=== PATIENT | male | born 1945 | race Caucasian/White ===

== ENCOUNTER 2017-02-13 10:47 | Day surgery (SDC) | payer MEDICARE, BC ==
[2017-02-12 12:29] VITALS: BMI 25.0
[~2017-02-13 10:47] MED LIST: LACTATED RINGERS 1,000 ML IV SCH
[2017-02-13 11:27] VITALS: TEMP 98.3
[2017-02-13] MEDS ORDERED: LIDOCAINE 1% 20 ML VIAL (10MG/ML) FOR IV START INTRADERMA ONE (11:38)
[2017-02-13] MEDS ORDERED: PROPOFOL 10 MG/ML 20 ML VIAL IV ONE (11:50)
--- NOTE | 2017-02-13 11:57 | P.PCN ---
Date of Procedure: 02/13/17 Procedure(s) Performed: BRIEF HISTORY: Patient is a 71-year-old, pleasant, male, scheduled for an upper endoscopy as a part of surveillance of Trent's esophagus. He has long standing history of GERD.. PROCEDURE PERFORMED: Esophagogastroduodenoscopy with biopsy. PREOPERATIVE DIAGNOSIS: GERD/Trent's esophagus. IV sedation per anesthesia. PROCEDURE: After informed consent was obtained, the patient was brought into the endoscopy unit. IV sedation was administered by Anesthesia under continuous monitoring. Initially the Olympus GIF-140 video endoscope was inserted into the mouth. Esophagus intubated without any difficulty. It was gradually advanced into the stomach and duodenum and carefully examined. The bulb and the second part of the duodenum appeared normal. The scope at this time was withdrawn to the stomach, adequately insufflated with air, and upon careful examination, mucosa of the antrum, body, cardia and the fundus appeared normal. The scope was then withdrawn into the esophagus. Moderate size hiatal hernia noted. The GE junction was located at 35 cm from the incisors. There was long segment Trent's esophagus extending from 32-35 cm from incisors and biopsies were done from this area. The rest of the esophagus appeared normal. There were no erosions or ulcerations seen and the patient tolerated the procedure well. IMPRESSION: 1. Trent's esophagus. 2. Small to moderate size hiatal hernia. RECOMMENDATIONS: The findings of this examination were discussed with the patient as well as his family. He was advised to follow with the biopsy results. If the biopsy shows no evidence of dysplasia, he can have a repeat upper endoscopy in 2-3 years.
[2017-02-13 12:19] VITALS: BP 132/79; PULSE 52; RESP 18
== END 2017-02-13 12:39 | disposition home or self-care (01) ==
LOC: ORWHC2ENDO 10:47
PROVIDERS: ATTEND Internal Medicine Gastroenterology
DX: K22.70 Barrett's esophagus without dysplasia (principal); K21.9 Gastro-esophageal reflux disease without esophagitis; K44.9 Diaphragmatic hernia without obstruction or gangrene; I10 Essential (primary) hypertension; E78.5 Hyperlipidemia, unspecified; I25.10 Atherosclerotic heart disease of native coronary artery without angina pectoris; Z95.5 Presence of coronary angioplasty implant and graft; Z79.899 Other long term (current) drug therapy; Z79.82 Long term (current) use of aspirin
CPT/HCPCS: 88305; 43239; J2704

== ENCOUNTER 2019-03-20 08:01 | Day surgery (SDC) | payer MEDICARE, BC ==
[2019-03-18 13:03] VITALS: BMI 25.0
[~2019-03-20 08:01] MED LIST changes: +LIDOCAINE 1% 20 ML VIAL (10MG/ML) FOR IV START INTRADERMA PRN
[2019-03-20 08:24] VITALS: RESP 16; TEMP 97.6
[2019-03-20] MEDS ORDERED: PROPOFOL 10 MG/ML 20 ML VIAL IV ONE (08:57)
[2019-03-20] MEDS ORDERED: LIDOCAINE 1% INJ 10MG/ML (20 ML MDV) ONE (08:57)
--- NOTE | 2019-03-20 09:09 | P.PCN ---
Date of Procedure: 03/20/19 Procedure(s) Performed: BRIEF HISTORY: Patient is a 73-year-old, pleasant, white male, scheduled for an upper endoscopy as a part of evaluation of GERD and Trent's esophagus.. He remains on Prilosec 20 mg daily and doing well. PROCEDURE PERFORMED: Esophagogastroduodenoscopy with biopsy. PREOPERATIVE DIAGNOSIS: GERD/Trent's esophagus. IV sedation per anesthesia. PROCEDURE: After informed consent was obtained, the patient was brought into the endoscopy unit. IV sedation was administered by Anesthesia under continuous monitoring. Initially the Olympus GIF-140 video endoscope was inserted into the mouth. Esophagus intubated without any difficulty. It was gradually advanced into the stomach and duodenum and carefully examined. The bulb and the second part of the duodenum appeared normal. The scope at this time was withdrawn to the stomach, adequately insufflated with air, and upon careful examination, mucosa of the antrum, body, cardia and the fundus appeared normal. The scope was then withdrawn into the esophagus. Moderate size hiatal hernia noted. The GE junction was located at 38 cm from the incisors. There was long segment of Trent's esophagus extending from 34-38 cm from the incisors and multiple biopsies were done from this segment. No nodularity or ulcerations noted. The rest of the esophagus appeared normal. There were no erosions or ulcerations seen and the patient tolerated the procedure well. IMPRESSION: 1. Long segment Trent's esophagus status post multiple biopsies to rule out dysplasia. 2. Small to moderate size hiatal hernia. RECOMMENDATIONS: The findings of this examination were discussed with the patient as well as his family. He was advised to follow with the biopsy results. If the biopsy shows no evidence of dysplasia, he can have a repeat upper endoscopy in 2 years.
[2019-03-20 09:55] VITALS: BP 166/88; PULSE 58
== END 2019-03-20 09:52 | disposition home or self-care (01) ==
LOC: ORWHC2ENDO 08:01
PROVIDERS: ATTEND Internal Medicine Gastroenterology
DX: K22.70 Barrett's esophagus without dysplasia (principal); K21.9 Gastro-esophageal reflux disease without esophagitis; K44.9 Diaphragmatic hernia without obstruction or gangrene; I10 Essential (primary) hypertension; I25.10 Atherosclerotic heart disease of native coronary artery without angina pectoris; I25.2 Old myocardial infarction; E78.5 Hyperlipidemia, unspecified; M19.90 Unspecified osteoarthritis, unspecified site; Z79.82 Long term (current) use of aspirin; Z79.899 Other long term (current) drug therapy; Z95.5 Presence of coronary angioplasty implant and graft
CPT/HCPCS: 88305; 43239; J2001; J2704

== ENCOUNTER 2019-04-06 16:43 | Inpatient (IN) | payer MEDICARE, BC ==
--- NOTE | 2019-04-06 16:51 | ED ---
Fall HPI - General Stated Complaint: fall/hip & groin pain Time Seen by Provider: 04/06/19 16:43 Source: patient, EMS, RN notes reviewed - History of Present Illness Initial Comments: This is a 73-year-old male who states he fell yesterday getting out of his truck after going to the [employer] birthday green party and having some drinks. Gastric exactly how he fell he had no head neck or back pain but did complain of severe right hip pain. He was. He allows by his family he still remains nonweightbearing complains of 10/10 pain did did improve somewhat after IV pain medication given by paramedics. No loss of function to his lower extremity chest pain. He points to his buttock and anterior hip area. He has no prior history of falls or fractures to his lower extremities. MD Complaint: fall - Related Data Home Medications Medication Instructions Recorded Confirmed Aspirin 81 mg PO DAILY 11/13/13 04/06/19 Carvedilol [Coreg] 6.25 mg PO BID 11/13/13 04/06/19 Omeprazole [PriLOSEC] 20 mg PO AC-BRKFST 11/13/13 04/06/19 Rosuvastatin Calcium [Crestor] 20 mg PO DAILY 11/13/13 04/06/19 Allergies Allergy/AdvReac Type Severity Reaction Status Date / Time No Known Allergies Allergy Verified 04/06/19 17:10 Review of Systems ROS Statement: Those systems with pertinent positive or pertinent negative responses have been documented in the HPI. ROS Other: All systems not noted in ROS Statement are negative. Past Medical History Past Medical History: Hyperlipidemia, Hypertension, Myocardial Infarction ([place]), Osteoarthritis ([place]) Additional Past Medical History / Comment(s): Trent's Esophagus Last Myocardial Infarction Date:: 2005 History of Any Multi-Drug Resistant Organisms: None Reported Past Surgical History: Heart Catheterization With Stent, Orthopedic Surgery Additional Past Surgical History / Comment(s): Knee arthro.;. benign cyst removed from chest. EGD, Past Anesthesia/Blood Transfusion Reactions: Motion Sickness Date of Last Stent Placement:: 2005 Smoking Status: Current every day smoker - Past Family History Mother Family Medical History: Cancer General Exam - General Exam Comments Initial Comments: This is a well-developed well-nourished alert oriented times female demonstrate a [place] Coma Scale of 15 General appearance: alert, in no apparent distress Head exam: Present: atraumatic, normocephalic, normal inspection Eye exam: Present: normal appearance, PERRL, EOMI. Absent: scleral icterus, conjunctival injection, periorbital swelling ENT exam: Present: normal exam, mucous membranes moist Neck exam: Present: normal inspection, full ROM, other (No Stridor JVD or bruits). Absent: tenderness, meningismus, lymphadenopathy Respiratory exam: Present: normal lung sounds bilaterally. Absent: respiratory distress, wheezes, rales, rhonchi, stridor Cardiovascular Exam: Present: regular rate, normal rhythm, normal heart sounds. Absent: systolic murmur, diastolic murmur, rubs, gallop, clicks GI/Abdominal exam: Present: soft, normal bowel sounds. Absent: distended, tenderness, guarding, rebound, rigid Extremities exam: Present: normal inspection, tenderness (Tennis palpation of the right buttock and anterior pelvis no definite hip tenderness no definite shortening or rotation seen.), normal capillary refill. Absent: pedal edema, joint swelling, calf tenderness Back exam: Present: normal inspection Neurological exam: Present: alert, oriented X3, CN II-XII intact Psychiatric exam: Present: normal affect, normal mood Skin exam: Present: warm, dry, intact, normal color. Absent: rash Course Vital Signs 04/06/19 16:46 Temperature 98 F Respiratory 20 Rate Medical Decision Making - Medical Decision Making I did discuss findings with patient family members patient will be admitted for evaluation and repair the fracture I did discuss case with Dr. Galindo who is agreed to set the patient to his service. - Radiology Data Radiology results: report reviewed (I did review the imaging and reports patient does have a subcapital right hip fracture.), image reviewed Disposition Clinical Impression: Fall, Subcapital fracture of right hip Disposition: ADMITTED IP TO THIS [facility] Condition: Fair Referrals: [facility],Clinic [Primary Care Provider] - 1-2 days
--- NOTE | 2019-04-06 17:19 | XR ---
EXAMINATION TYPE: XR Hip Complete RT DATE OF EXAM: 04/06/2019 COMPARISON: NONE HISTORY: Fall. Pain. TECHNIQUE: 2 views FINDINGS: There is impacted subcapital fracture of the right femur. Impaction is more than 2 cm. Ther e is no dislocation. Acetabulum is intact. Right sacroiliac joint appears intact. IMPRESSION: Acute impacted subcapital fracture right femur.
--- NOTE | 2019-04-06 17:20 | XR ---
EXAMINATION TYPE: XR chest 1V DATE OF EXAM: 04/06/2019 COMPARISON: NONE HISTORY: Right hip pain TECHNIQUE: Single frontal view of the chest is obtained. FINDINGS: There is no heart failure nor confluent pneumonic infiltrate. Costophrenic angles are maria ines r. Bony thorax appears intact. IMPRESSION: No active cardiopulmonary disease.
[2019-04-06] MEDS ORDERED: HYDROmorphone 1 MG/ML 1 ML SYRINGE IVP STA (17:40)
[2019-04-06] MEDS ORDERED: ONDANSETRON 4 MG/2 ML VIAL IVP PRN (18:17)
[2019-04-06] MEDS ORDERED: NALOXONE 0.4 MG/ML 1 ML VIAL IV PRN (18:17)
[2019-04-06 18:24] LABS: Basophils % (A) 0 %; Eosinophils # (A) 0.1 k/uL (0-0.7); Eosinophils % (A) 1 %; HCT 42.3 % (39.0-53.0); HGB 14.9 gm/dL (13.0-17.5); Lymphocytes % (A) 10 %; MCH 33.1 pg (25.0-35.0); MCHC 35.2 g/dL (31.0-37.0); MCV 94.1 fL (80.0-100.0); Mean Platelet Volume 5.9; Monocytes # (A) 0.6 k/uL (0-1.0); Monocytes % (A) 6 %; Neutrophils # (A) 8.2 k/uL (1.3-7.7); Neutrophils % (A) 83 %; Platelet Count 186 k/uL (150-450); RDW 12.3 % (11.5-15.5); WBC 9.9 k/uL (3.8-10.6)
[2019-04-06 18:33] LABS: ALT 44 U/L (21-72); AST 34 U/L (17-59); African American GFR (CKD) >90 (>60 ml/min/1.73 sqM); Albumin 4.3 g/dL (3.5-5.0); Alkaline Phosphatase 86 U/L (38-126); Anion Gap 9 mmol/L; Blood Urea Nitrogen 12 mg/dL (9-20); Calcium 9.1 mg/dL (8.4-10.2); Carbon Dioxide 25 mmol/L (22-30); Chloride 103 mmol/L (98-107); Creatine Kinase 343 U/L (55-170); Glucose 116 mg/dL (74-99); Magnesium 1.9 mg/dL (1.6-2.3); Potassium 4.3 mmol/L (3.5-5.1); Sodium 137 mmol/L (137-145); Total Bilirubin 1.4 mg/dL (0.2-1.3); Total Protein 7.4 g/dL (6.3-8.2)
[2019-04-06] MEDS: SODIUM CHLORIDE 0.9% 1,000 ML IV SCH (19:31)
[2019-04-06 20:03] LABS: Appearance,Urine Clear (Clear); Bacteria,Urine Rare /hpf; Bilirubin,Urine Negative (Negative); Blood,Urine Small (Negative); Color,Urine Yellow; Glucose,Urine (UA) Negative (Negative); Ketones,Urine 2+ (Negative); Leukocyte Esterase,Urine Negative (Negative); Mucus,Urine Rare /hpf; Nitrite,Urine Negative (Negative); Protein,Urine Trace (Negative); RBC,Urine 1 /hpf (0-5); Specific Gravity,Urine 1.012 (1.001-1.035); Urobilinogen,Urine <2.0 mg/dL (<2.0); WBC,Urine 1 /hpf (0-5)
[2019-04-06] MEDS: HYDROmorphone 1 MG/ML 1 ML SYRINGE IVP PRN ×2 (20:40→23:42)
[2019-04-06] MEDS: HEPARIN SODIUM,PORCINE 5,000 UNIT/ML 1 ML VIAL SQ SCH (23:46)
[2019-04-07] MEDS: HYDROmorphone 1 MG/ML 1 ML SYRINGE IVP PRN ×3 (02:26→08:34)
[2019-04-07] MEDS: SODIUM CHLORIDE 0.9% 1,000 ML IV SCH ×3 (02:27→16:33)
[2019-04-07] MEDS: HEPARIN SODIUM,PORCINE 5,000 UNIT/ML 1 ML VIAL SQ SCH (08:32)
--- NOTE | 2019-04-07 08:35 | P.HPOR ---
History of Present Illness H&P Date: 04/07/19 This patient is a 73-year-old male with past medical history of myocardial infarction status-post stent placement in 2005, hypertension, hyperlipidemia that presented to [facility] ER via EMS history on 04/06/19 with complaints of right hip pain status post fall. Patient states earlier in the day he had attended a [place] birthday [employer], and was drinking alcohol. The patient states he was intoxicated when he fell. He states he was outside when he fell, he is unsure of it was icy or how he fell. He states he landed directly onto the right hip. He states he experienced immediate pain and was unable to get up on his own. The patient's and daughter helped him into the house, and EMS was called. X-rays in the emergency department revealed a right subcapital femoral neck fracture. Patient was admitted under the care of Dr. Galindo with a consult placed to internal medicine for medical clearance. At the time of my exam, the patient is complaining of isolated right hip pain. He states he did not sustain any additional injuries. He denies chest pain, shortness breath, nausea, vomiting. Despite his pain, he states he otherwise feels well. Vital signs stable. Past Medical History Past Medical History: Hyperlipidemia, Hypertension, Myocardial Infarction ([place]), Osteoarthritis ([place]) Additional Past Medical History / Comment(s): Trent's Esophagus, [place] 2005 Last Myocardial Infarction Date:: 2005 History of Any Multi-Drug Resistant Organisms: None Reported Past Surgical History: Heart Catheterization With Stent, Hernia Repair, Orthopedic Surgery Additional Past Surgical History / Comment(s): Knee arthro 1970.;. benign cyst removed from chest. EGD on Mar 22, 2019 Past Anesthesia/Blood Transfusion Reactions: Motion Sickness Date of Last Stent Placement:: 2005 Past Psychological History: No Psychological Hx Reported Smoking Status: Current every day smoker Past Alcohol Use History: Occasional Additional Past Alcohol Use History / Comment(s): Start smoking at the age of 13. Past Drug Use History: None Reported - Past Family History Mother Family Medical History: Cancer Medications and Allergies Home Medications Medication Instructions Recorded Confirmed Type Aspirin 81 mg PO DAILY 11/13/13 04/06/19 History Carvedilol [Coreg] 6.25 mg PO BID 11/13/13 04/06/19 History Omeprazole [PriLOSEC] 20 mg PO AC-BRKFST 11/13/13 04/06/19 History Rosuvastatin Calcium [Crestor] 20 mg PO DAILY 11/13/13 04/06/19 History Clobetasol Propionate [Temovate 1 applic TOPICAL BID PRN 04/06/19 04/06/19 History 0.05% Cream] Ezetimibe [Zetia] 10 mg PO SUWE 04/06/19 04/06/19 History Loratadine [Claritin] 10 mg PO DAILY PRN 04/06/19 04/06/19 History Meloxicam [Mobic] 7.5 mg PO DAILY PRN 04/06/19 04/06/19 History Allergies Allergy/AdvReac Type Severity Reaction Status Date / Time No Known Allergies Allergy Verified 04/06/19 17:10 Physical Examination On examination, the patient is sitting up in bed in no apparent distress. He is alert and oriented 3. His head is atraumatic and normocephalic. His breathing appears nonlabored. On inspection of the right lower extremity, extremity is shortened and externally rotated. There is diffuse tenderness on palpation of the right hip. There is no tenderness to palpation of the right knee, lower leg, ankle, foot. Patient has full range of motion of the ankle and toes, no pain to passive range of motion. The right lower extremity is warm and well-perfused. Dorsalis pedis pulse palpable. Motor and sensory function are intact of the right lower extremity. On inspection of the left lower extremity, and the bilateral upper extremities, there is no obvious deformity or evidence of trauma. Results Right hip x-ray 04/06/19: Acute subcapital femoral neck fracture - Labs Labs: Abnormal Lab Results - Last 24 Hours (Table) 04/06/19 04/06/19 04/06/19 Range/Units 17:29 18:00 18:00 Neutrophils # 8.2 H (1.3-7.7) k/uL Glucose 116 H (74-99) mg/dL Total Bilirubin 1.4 H (0.2-1.3) mg/dL Creatine Kinase 343 H (55-170) U/L Urine Protein Trace H (Negative) Urine Ketones 2+ H (Negative) Urine Blood Small H (Negative) Urine Bacteria Rare H (None) /hpf Urine Mucus Rare H (None) /hpf H & H 04/06/19 Range/Units 18:00 Hgb 14.9 (13.0-17.5) gm/dL Hct 42.3 (39.0-53.0) % Result Diagrams: 04/06/19 18:00 04/06/19 18:00 Assessment and Plan Assessment: Right subcapital femoral neck fracture Plan: - Discussed the clinical and x-ray findings with the patient. We will plan on a right hip hemiarthroplasty this afternoon with Dr. Galindo, pending medical clearance and consent. - Strict non-weight bearing of the right lower extremity. Ice and elevate right hip for pain and swelling control. - Continue current pain management. - NPO diet. - Patient discussed with Dr. Galindo.
[2019-04-07] MEDS ORDERED: DIAZEPAM 5 MG TAB PO PRN (10:48)
[2019-04-07] MEDS ORDERED: MAGNESIUM HYDROXIDE 2,400 MG/10 ML CUP PO PRN (10:48)
[2019-04-07] MEDS ORDERED: ONDANSETRON 4 MG/2 ML VIAL IVP PRN (10:48)
[2019-04-07] MEDS ORDERED: HYDROmorphone 0.5 MG/0.5 ML SYRINGE IVP PRN ×2 (10:48)
[2019-04-07] MEDS ORDERED: NALOXONE 0.4 MG/ML 1 ML VIAL IV PRN (10:48)
[2019-04-07] MEDS ORDERED: HYDROcodone/APAP 5-325MG 1 EACH TAB PO PRN (10:48)
[2019-04-07] MEDS ORDERED: LACTATED RINGERS 1,000 ML IV ONE ×2 (11:06→13:31)
[2019-04-07] MEDS ORDERED: IV FLUID CONTINUATION 50 ML IV ONE (11:06)
--- NOTE | 2019-04-07 11:16 | P.PN ---
Progress Note - Text Progress Note Date: 04/07/19 Patient was seen and evaluated at the bedside today. I discussed the case with Dr. Galindo, who due to time constraints would be unable to perform the surgery until much later this afternoon. The best interest of the patient, I agreed to perform the procedure sooner in the day, in order to accelerate the patient's recovery. I discussed the surgery at length with the patient examined him and evaluate the x-rays. I recommended a right hip hemiarthroplasty for subcapital fracture of his hip. He is agreeable to this informed consent was obtained.
[2019-04-07] MEDS ORDERED: fentaNYL (PF) 50 MCG/ML 2 ML AMP IV ONE (11:38)
[2019-04-07] MEDS ORDERED: KETAMINE 10 MG/ML 20 ML VIAL ONE (12:12)
[2019-04-07] MEDS ORDERED: PHENYLEPHRINE-0.9% NACL SYG 1 MG/10 ML SYRINGE ONE (12:12)
[2019-04-07] MEDS ORDERED: MIDAZOLAM 2 MG/2 ML VIAL ONE (12:12)
[2019-04-07] MEDS ORDERED: SODIUM CHLORIDE 0.9% 100 ML with ceFAZolin 2,000 MG IV ONE ×2 (12:30)
--- NOTE | 2019-04-07 13:19 | P.OP ---
Date of Procedure: 04/07/19 Preoperative Diagnosis: Subcapital fracture right hip Postoperative Diagnosis: Subcapital fracture right hip Procedure(s) Performed: Right hip hemiarthroplasty Implants: Kaba and nephew Polarstem size 6 standard Kaba [employer] Nephew tandem unipolar, 52 mm Kaba [employer] Nephew tandem unipolar 12/14 taper sleeve, +8 mm All components were press-fit. Anesthesia: spinal Surgeon: Alberto Quiros Manufacturing Director #1: Sandy Oliver Estimated Blood Loss (ml): 100 Pathology: other (Femoral head) Condition: stable Disposition: PACU Indications for Procedure: This is a 73-year-old gentleman that slipped and fell and sustained a subcapital fracture of his right hip. After discussing the surgical nonsurgical treatment options with him at length, I recommended a right hip hemiarthroplasty, and informed consent was obtained. Operative Findings: The operative findings are consistent with a subcapital fracture of the right hip Description of Procedure: Patient was seen and evaluated in the preoperative area, consent was reviewed and the operative site was marked with a skin marker. Patient was then brought to the operating room and given 2 g of Ancef intravenously. A spinal anesthetic was administered by the anesthesia department. Patient was then placed in a lateral decubitus position and held with a [place] hip positioner. The bony prominences were well-padded and an axillary roll was placed. The hip was then prepped and draped in the usual sterile fashion. A universal timeout was then performed which confirmed the patient's name, surgical site, ALLERGIES, and pr ocedure. A standard anterolateral approach the hip was performed. Skin and subcutaneous tissues were sharply incised with an incision centered over the tip of the greater trochanter. The incision was carefully dissected down to the fascia. The fascia was then split in line with skin incision and a Charnley retractor was gently placed. The abductors were then identified, and the anterior one t hird of the abductors were released off the trochanter and one large sleeve. The fracture hematoma was evacuated and the proximal femur was exposed by externally rotating the femur. The fracture site was readily visualized. Next, using an osteotomy guide, the proximal femur was osteotomized at the appropriate level of the above the lesser trochanter. This bone was then removed. Attention was then turned to the femoral head. Using a corkscrew, the femoral head was removed from the acetabulum without incident. The acetabulum was inspected, and found to have no significant arthrosis. Femoral head was then measured. Attention was then redirected to the femur. Proximal femur was re-exposed and a box osteotome was used to lateralize the proximal femur. A burr bench hand was then used to locate the femoral canal. Sequential broaching was then performed to the appropriate size. The calcar was then planed and trial head and neck were placed. The hip was then gently reduced. Leg lengths were checked and found to be equal. Hip was then taken through a full range of motion was stable throughout. The hip was then gently dislocated with the aid of a bone hook. The trial head and neck were then removed. The femoral broach was then inspected and found to have a secure fit. The broach was then removed. The hip was then copiously irrigated with antibiotic solution with a pulse lavage. Components were then opened and the femoral stem was then impacted into the proximal femur. The trunnion was cleaned and dried, and the femoral head and neck were then impacted. Hip was again gently reduced. Again leg lengths were checked and found to be equal, and the hip was taken through a full range of motion and found to be stable. The hip was again irrigated with pulsatile lavag e, then followed by the Irrrisept solution. The abductors were then repaired through drill holes to the bone to the greater trochanter, utilizing #5 Ethibond suture. Next the fascia was repaired with #2 strata fix suture. The subcutaneous tissue was then repaired with 3-0 Vicryl. The subcuticular tissue was then repaired with 3-0 strata fix suture. Skin was then closed with Dermabond tape. A sterile dressing was then applied and the patient was transported to the recovery room in stable condition. Manufacturing Director EMMA Alvarez was required due to the complexity of surgery the need for skilled dental assistant medical assistant. She assisted with positioning the patient, draping the patient, retraction during the surgery, and closure of the wound.
--- NOTE | 2019-04-07 14:14 | XR ---
Limited right hip HISTORY: Status post right hip arthroplasty Single frontal view of the right hip Patient is status post right hip arthroplasty. There is anatomic alignment. Lucency in the soft tissu es is compatible with postop state. IMPRESSION: Orthopedic follow-up.
[2019-04-07] MEDS ORDERED: CLOBETASOL PROP 0.05% CR 15GM TOPICAL PRN (14:21)
--- NOTE | 2019-04-07 14:33 | P.CONS ---
History of Present Illness - Reason for Consult Preoperative clearance - History of Present Illness Patient is a pleasant 73-year-old gentleman had a mechanical fall. Will femoral neck fracture. Patient was intoxicated and fell. Patient has history of coronary artery disease no active chest pain at this time EKG showed some nonspecific ST-T wave changes, patient will benefit from an echocardiogram S si nce patient is going for surgery as soon as possible I believe patient is okay for surgery although patient is mild to moderate operative risk considering his smoking history. Patient can be continued on aspirin ration in any fevers his shortness of breath patient is not in CHF exacerbation at this time. Review of Systems REVIEW OF SYSTEMS: CONSTITUTIONAL: No fever, no malaise, no fatigue. HEENT: No recent visual problems or hearing problems. Denied any sore throat. CARDIOVASCULAR: No chest pain, orthopnea, PND, no palpitations, no syncope. PULMONARY: No shortness of breath, no cough, no hemoptysis. GASTROINTESTINAL: No diarrhea, no nausea, no vomiting, no abdominal pain. NEUROLOGICAL: No headaches, no weakness, no numbness. HEMATOLOGICAL: Denies any bleeding or petechiae. GENITOURINARY: Denies any burning micturition, frequency, or urgency. MUSCULOSKELETAL/RHEUMATOLOGICAL: As mentioned in HPI with the pain in the fracture site area ENDOCRINE: Denies any polyuria or polydipsia. The rest of the 14-point review of systems is negative. Past Medical History Past Medical History: Hyperlipidemia, Hypertension, Myocardial Infarction ([place]), Osteoarthritis ([place]) Additional Past Medical History / Comment(s): Rtent's Esophagus, [place] 2005 Last Myocardial Infarction Date:: 2005 History of Any Multi-Drug Resistant Organisms: None Reported Past Surgical History: Heart Catheterization With Stent, Hernia Repair, Orthopedic Surgery Additional Past Surgical History / Comment(s): Knee arthro 1970.;. benign cyst removed from chest. EGD on Mar 22, 2019 Past Anesthesia/Blood Transfusion Reactions: Motion Sickness Date of Last Stent Placement:: 2005 Past Psychological History: No Psychological Hx Reported Smoking Status: Current every day smoker Past Alcohol Use History: Occasional Additional Past Alcohol Use History / Comment(s): Start smoking at the age of 13. Past Drug Use History: None Reported - Past Family History Mother Family Medical History: Cancer Medications and Allergies Home Medications Medication Instructions Recorded Confirmed Type Aspirin 81 mg PO DAILY 11/13/13 04/06/19 History Carvedilol [Coreg] 6.25 mg PO BID 11/13/13 04/06/19 History Omeprazole [PriLOSEC] 20 mg PO AC-BRKFST 11/13/13 04/06/19 History Rosuvastatin Calcium [Crestor] 20 mg PO DAILY 11/13/13 04/06/19 History Clobetasol Propionate [Temovate 1 applic TOPICAL BID PRN 04/06/19 04/06/19 History 0.05% Cream] Ezetimibe [Zetia] 10 mg PO SUWE 04/06/19 04/06/19 History Loratadine [Claritin] 10 mg PO DAILY PRN 04/06/19 04/06/19 History Meloxicam [Mobic] 7.5 mg PO DAILY PRN 04/06/19 04/06/19 History Allergies Allergy/AdvReac Type Severity Reaction Status Date / Time No Known Allergies Allergy Verified 04/07/19 10:50 Physical Exam Vitals: Vital Signs Temp Pulse Pulse Resp BP BP Pulse Ox 04/07/19 14:16 87 16 139/67 96 04/07/19 14:00 79 16 141/66 97 04/07/19 13:47 99.4 F 92 20 110/58 92 L 04/07/19 10:40 98.8 F 96 16 123/85 94 L 04/07/19 07:00 98.4 F 90 16 149/80 92 L 04/07/19 03:15 78 18 04/07/19 01:50 98.1 F 87 147/82 93 L 04/07/19 00:35 78 18 04/06/19 22:02 78 162/78 04/06/19 21:00 18 04/06/19 20:40 97.9 F 80 176/90 96 04/06/19 19:33 164/85 04/06/19 19:11 98.1 F 84 18 159/94 96 04/06/19 19:03 85 18 171/107 93 L 04/06/19 19:00 171/107 95 04/06/19 18:00 191/93 04/06/19 17:40 191/93 04/06/19 16:46 98 F 20 Intake and Output 04/06/19 04/07/19 04/07/19 22:59 06:59 14:59 Intake Total 1000 1200 Output Total 300 310 Balance 1000 -300 890 Intake: IV 1200 Intake, IV Titration 750 Amount Sodium Chloride 0.9% 1, 750 000 ml @ 125 mls/hr IV . Q8H [facility] Rx#:[id number] Oral 250 Output: Urine 300 210 Estimated Blood Loss 100 Other: Voiding Method Urinal Urinal Urinal # Voids 1 1 Weight 86.183 kg PHYSICAL EXAMINATION: GENERAL: The patient is alert and oriented x3, not in any acute distress. Well developed, well nourished. HEENT: Pupils are round and equally reacting to light. EOMI. No scleral icterus. No conjunctival pallor. Normocephalic, atraumatic. No pharyngeal erythema. No thyromegaly. CARDIOVASCULAR: S1 and S2 present. No murmurs, rubs, or gallops. PULMONARY: Chest is clear to auscultation, no wheezing or crackles. ABDOMEN: Soft, nontender, nondistended, normoactive bowel sounds. No palpable organomegaly. MUSCULOSKELETAL: Deferred to orthopedic surgery EXTREMITIES: No cyanosis, clubbing, or pedal edema. NEUROLOGICAL: Gross neurological examination did not reveal any focal deficits. SKIN: No rashes. Results CBC & Chem 7: 04/06/19 18:00 04/06/19 18:00 Labs: Abnormal Lab Results - Last 24 Hours (Table) 04/06/19 04/06/19 04/06/19 Range/Units 17:29 18:00 18:00 Neutrophils # 8.2 H (1.3-7.7) k/uL Glucose 116 H (74-99) mg/dL Total Bilirubin 1.4 H (0.2-1.3) mg/dL Creatine Kinase 343 H (55-170) U/L Urine Protein Trace H (Negative) Urine Ketones 2+ H (Negative) Urine Blood Small H (Negative) Urine Bacteria Rare H (None) /hpf Urine Mucus Rare H (None) /hpf Assessment and Plan Plan: Mechanical fall and suffered a fracture of the right hip patient is low to intermediate risk for orthopedic surgery considering his distractors of coronary artery disease although doesn't have any chest pain and smoking history. Patient to functional status is fairly good. -Hyperlipidemia -Hypertension -Osteoarthritis -Coronary artery disease with stent in the past. -Continue nicotine use. Recommend to resume aspirin, beta terry and statin after surgery
[2019-04-07] MEDS: HYDROcodone/APAP 5-325MG 1 EACH TAB PO PRN (17:28)
[2019-04-07] MEDS: HYDROmorphone 0.5 MG/0.5 ML SYRINGE IVP PRN ×2 (19:30→23:22)
[2019-04-08] MEDS: SENNOSIDES-DOCUSATE SODIUM 1 EACH TAB PO SCH ×2 (00:40→20:35)
[2019-04-08] MEDS: SODIUM CHLORIDE 0.9% 1,000 ML IV SCH ×4 (02:48→10:54)
[2019-04-08] MEDS: HYDROcodone/APAP 5-325MG 1 EACH TAB PO PRN ×2 (02:53→10:56)
[2019-04-08] MEDS: HYDROmorphone 0.5 MG/0.5 ML SYRINGE IVP PRN ×4 (05:26→23:38)
[2019-04-08 07:22] LABS: Basophils % (A) 0 %; Eosinophils # (A) 0.1 k/uL (0-0.7); Eosinophils % (A) 1 %; HCT 37.4 % (39.0-53.0); HGB 12.7 gm/dL (13.0-17.5); Lymphocytes # (A) 1.1 k/uL (1.0-4.8); Lymphocytes % (A) 13 %; MCH 31.7 pg (25.0-35.0); MCHC 33.8 g/dL (31.0-37.0); MCV 93.9 fL (80.0-100.0); Mean Platelet Volume 6.5; Monocytes # (A) 0.5 k/uL (0-1.0); Monocytes % (A) 6 %; Neutrophils # (A) 6.8 k/uL (1.3-7.7); Neutrophils % (A) 79 %; Platelet Count 134 k/uL (150-450); RBC 3.99 m/uL (4.30-5.90); RDW 12.1 % (11.5-15.5); WBC 8.6 k/uL (3.8-10.6)
--- NOTE | 2019-04-08 08:22 | P.PN ---
Subjective Progress Note Date: 04/08/19 This is a 73-year-old male who is status post right hip hemiarthroplasty. This is postoperative day #1 and patient is seen and evaluated at bedside with Dr. Alberto Quiros. Patient states that he does have some soreness in the right hip, but overall is feeling well. Patient denies any fever/chills, numbness, weakness, tingling, abdominal pain, shortness of breath or chest pain. Objective - Vital Signs Vital signs: Vital Signs Temp 98.6 F 04/08/19 01:29 Pulse 85 04/08/19 01:29 Resp 20 04/08/19 01:29 BP 155/70 04/08/19 01:29 Pulse Ox 95 04/08/19 01:29 Intake & Output 04/07/19 04/08/19 04/08/19 18:59 06:59 18:59 Intake Total 1500 200 Output Total 310 1100 Balance 1190 -900 Intake: IV 1500 Oral 200 Output: Urine 210 1100 Estimated Blood Loss 100 Other: Voiding Method Urinal Urinal # Voids 1 2 - Exam Vital signs are stable. Patient is in no acute distress and is alert and oriented 3. Calf is soft and nontender to palpation. Dressing is clean, dry, and intact. Patient has full foot and ankle motion without pain or difficulty. Neurovascular status and circulatory status are intact. - Labs CBC & Chem 7: 04/08/19 06:57 04/06/19 18:00 Labs: Abnormal Lab Results - Last 24 Hours (Table) 04/08/19 Range/Units 06:57 RBC 3.99 L (4.30-5.90) m/uL Hgb 12.7 L (13.0-17.5) gm/dL Hct 37.4 L (39.0-53.0) % Plt Count 134 L (150-450) k/uL Assessment and Plan (1) S/P hip hemiarthroplasty Current Visit: Yes Status: Acute Code(s): Z96.649 - PRESENCE OF UNSPECIFIED ARTIFICIAL HIP JOINT SNOMED Code(s): 085464454 (2) Fall Current Visit: Yes Status: Acute Code(s): W19.XXXA - UNSPECIFIED FALL, INITIAL ENCOUNTER SNOMED Code(s): 5958599 (3) Subcapital fracture of right hip Current Visit: Yes Status: Acute Code(s): S72.011A - UNSP INTRACAPSULAR FRACTURE OF RIGHT FEMUR, INIT FOR CLOS FX SNOMED Code(s): 167079777 Plan: Continue routine postop care and pain control. Continue hip dislocation precautions and use of abductor pillow for 6 weeks. Continue anticoagulation with Xarelto. Weightbearing as tolerated with a walker. Leave dressing in place for 10 days. Appreciate input from medicine. Anticipate discharge home with homecare tomorrow.
[2019-04-08] MEDS: RIVAROXABAN 10 MG TAB PO SCH (08:45)
[2019-04-08] MEDS ORDERED: EZETIMIBE 10 MG TAB PO SCH (09:00)
--- NOTE | 2019-04-08 13:19 | P.PN ---
Subjective She did move his bowel patient pain is not controlled yet. Patient was bradycardic overnight patient is on beta terry patient is not hypertensive blood pressures also low patient does have history of coronary artery disease because of which patient is beta terry but it's not beneficial when his blood pressure is low and heart rate is low because of which is this can you this medication in spite of his history of coronary artery disease. 6 will monitor his blood pressure and heart rate depending on the trend, will decide on discharge beta terry. Constitutional: Denied any fatigue denied any fever. Cardio vascular: denied any chest pain, palpitations Gastrointestinal denied any nausea vomiting Pulmonary: Denied any shortness of breath cough Neurologic denied any new focal deficits All inpatient medications were reviewed and appropriate changes in these medications as dictated in the interval history and assessment and plan. Objective - Vital Signs Vital signs: Vital Signs Temp 99.0 F 04/08/19 07:31 Pulse 85 04/08/19 01:29 Resp 16 04/08/19 07:31 BP 118/56 04/08/19 07:31 Pulse Ox 92 L 04/08/19 07:31 Intake & Output 04/07/19 04/08/19 04/08/19 18:59 06:59 18:59 Intake Total 1500 200 Output Total 310 1100 Balance 1190 -900 Intake: IV 1500 Oral 200 Output: Urine 210 1100 Estimated Blood Loss 100 Other: Voiding Method Urinal Urinal # Voids 1 2 - Exam PHYSICAL EXAMINATION: GENERAL: The patient is alert and oriented x3, not in any acute distress. Well developed, well nourished. HEENT: Pupils are round and equally reacting to light. EOMI. No scleral icterus. No conjunctival pallor. Normocephalic, atraumatic. No pharyngeal erythema. No thyromegaly. CARDIOVASCULAR: S1 and S2 present. No murmurs, rubs, or gallops. PULMONARY: Chest is clear to auscultation, no wheezing or crackles. ABDOMEN: Soft, nontender, nondistended, normoactive bowel sounds. No palpable organomegaly. MUSCULOSKELETAL: Deferred to orthopedic surgery EXTREMITIES: No cyanosis, clubbing, or pedal edema. NEUROLOGICAL: Gross neurological examination did not reveal any focal deficits. SKIN: No rashes. - Labs CBC & Chem 7: 04/08/19 06:57 04/06/19 18:00 Labs: Abnormal Lab Results - Last 24 Hours (Table) 04/08/19 Range/Units 06:57 RBC 3.99 L (4.30-5.90) m/uL Hgb 12.7 L (13.0-17.5) gm/dL Hct 37.4 L (39.0-53.0) % Plt Count 134 L (150-450) k/uL Assessment and Plan Plan: Mechanical fall and suffered a fracture of the right hip she successfully underwent surgery. Patient is clinically doing well at this time patient has some sinus bradycardia from beta terry which will be held. Aspirin and statin will be resumed -Hyperlipidemia -Hypertension -Osteoarthritis -Coronary artery disease with stent in the past. -Continue nicotine use.
[2019-04-08] MEDS ORDERED: METOPROLOL TARTRATE 25 MG TAB PO SCH (21:00)
[2019-04-09] MEDS: ATORVASTATIN 40 MG TAB PO SCH (07:58)
[2019-04-09] MEDS: ASPIRIN 81 MG PO SCH (07:58)
[2019-04-09] MEDS: RIVAROXABAN 10 MG TAB PO SCH (07:59)
[2019-04-09] MEDS ORDERED: HYDROcodone/APAP 7.5-325MG 1 EACH TAB PO PRN (08:12)
--- NOTE | 2019-04-09 08:14 | P.PN ---
Subjective Progress Note Date: 04/09/19 This is a 73-year-old male who is status post right hip hemiarthroplasty. This is postoperative day #2 and patient is seen and evaluated at bedside. Patient states that he does have some pain in the right hip, but was able to get out of bed and walk a little bit yesterday. Patient denies any fever/chills, numbness, weakness, tingling, abdominal pain, shortness of breath or chest pain. Objective - Vital Signs Vital signs: Vital Signs Temp 98.3 F 04/09/19 07:20 Pulse 89 04/09/19 07:20 Resp 18 04/09/19 07:20 BP 133/75 04/09/19 07:20 Pulse Ox 91 L 04/09/19 07:20 Intake & Output 04/08/19 04/09/19 04/09/19 18:59 06:59 18:59 Intake Total 145 Output Total 1200 Balance -1055 Intake: Oral 145 Output: Urine 1200 Other: Voiding Method Urinal # Voids 2 300 - Exam Vital signs are stable. Patient is in no acute distress and is alert and oriented 3. Calf is soft and nontender to palpation. Dressing is clean, dry, and intact. Patient has full foot and ankle motion without pain or difficulty. Neurovascular status and circulatory status are intact. - Labs CBC & Chem 7: 04/08/19 06:57 04/06/19 18:00 Assessment and Plan (1) S/P hip hemiarthroplasty Current Visit: Yes Status: Acute Code(s): Z96.649 - PRESENCE OF UNSPECIFIED ARTIFICIAL HIP JOINT SNOMED Code(s): 555564121 (2) Fall Current Visit: Yes Status: Acute Code(s): W19.XXXA - UNSPECIFIED FALL, INITIAL ENCOUNTER SNOMED Code(s): 6474917 (3) Subcapital fracture of right hip Current Visit: Yes Status: Acute Code(s): S72.011A - UNSP INTRACAPSULAR FRACTURE OF RIGHT FEMUR, INIT FOR CLOS FX SNOMED Code(s): 942483653 Plan: Continue routine postop care and pain control. Continue hip dislocation precautions and use of abductor pillow for 6 weeks. Continue anticoagulation with Xarelto. Weightbearing as tolerated with a walker. Leave dressing in place for 10 days. Appreciate input from medicine. Anticipate discharge home with homecare or to [facility] tomorrow.
[2019-04-09] MEDS: HYDROcodone/APAP 7.5-325MG 1 EACH TAB PO PRN ×2 (08:55→15:01)
--- NOTE | 2019-04-09 14:48 | P.PN ---
Subjective She did move his bowel patient pain is not controlled yet. Patient was bradycardic overnight patient is on beta terry patient is not hypertensive blood pressures also low patient does have history of coronary artery disease because of which patient is beta terry but it's not beneficial when his blood pressure is low and heart rate is low because of which is this can you this medication in spite of his history of coronary artery disease. 6 will monitor his blood pressure and heart rate depending on the trend, will decide on discharge beta terry. 04/09/2019 Patient oxygen saturation 7 gone down because of which will get a chest x-ray make sure patient doesn't have any pulmonary edema from the IV fluids received in the perioperative period. Patient's blood pressure is better will start him back on Coreg and see how his heart rate and blood pressure are doing we may need to cut down the dose of Coreg as patient's heart rate was going down on this medication ALLERGIES Constitutional: Denied any fatigue denied any fever. Cardio vascular: denied any chest pain, palpitations Gastrointestinal denied any nausea vomiting Pulmonary: Denied any shortness of breath cough Neurologic denied any new focal deficits All inpatient medications were reviewed and appropriate changes in these medications as dictated in the interval history and assessment and plan. Objective - Vital Signs Vital signs: Vital Signs Temp 98.3 F 04/09/19 07:20 Pulse 89 04/09/19 07:20 Resp 18 04/09/19 07:20 BP 133/75 04/09/19 07:20 Pulse Ox 91 L 04/09/19 07:20 Intake & Output 04/08/19 04/09/19 04/09/19 18:59 06:59 18:59 Intake Total 145 Output Total 1200 600 Balance -1055 -600 Intake: Oral 145 Output: Urine 1200 600 Other: Voiding Method Urinal # Voids 2 300 # Bowel Movements 1 - Exam PHYSICAL EXAMINATION: GENERAL: The patient is alert and oriented x3, not in any acute distress. Well developed, well nourished. HEENT: Pupils are round and equally reacting to light. EOMI. No scleral icterus. No conjunctival pallor. Normocephalic, atraumatic. No pharyngeal erythema. No thyromegaly. CARDIOVASCULAR: S1 and S2 present. No murmurs, rubs, or gallops. PULMONARY: Chest is clear to auscultation, no wheezing or crackles. ABDOMEN: Soft, nontender, nondistended, normoactive bowel sounds. No palpable organomegaly. MUSCULOSKELETAL: Deferred to orthopedic surgery EXTREMITIES: No cyanosis, clubbing, or pedal edema. NEUROLOGICAL: Gross neurological examination did not reveal any focal deficits. SKIN: No rashes. - Labs CBC & Chem 7: 04/08/19 06:57 04/06/19 18:00 Assessment and Plan Plan: Mechanical fall and suffered a fracture of the right hip she successfully underwent surgery. Patient had sinus bradycardia because of which the patient held his beta terry his heart rate started going up and blood pressure started going up patient will be resumed on Coreg Monitor his vitals and depending on his vitals titration of beta terry will be done -Hyperlipidemia -Hypertension -Osteoarthritis -Coronary artery disease with stent in the past. -Continued nicotine use.
--- NOTE | 2019-04-09 15:29 | XR ---
EXAMINATION TYPE: XR chest 1V DATE OF EXAM: 04/09/2019 COMPARISON: 04/06/2019 HISTORY: Postop TECHNIQUE: Single frontal view of the chest is obtained. FINDINGS: Left basilar subsegmental consolidation. Right lung clear. No overt failure or pneumothora x. Arthropathy of the shoulders. Heart size normal. IMPRESSION: Left basilar atelectasis versus early infiltrate correlate clinically. No overt failure.
[2019-04-09] MEDS: CARVEDILOL 6.25 MG TAB PO SCH (17:18)
[2019-04-09] MEDS: SENNOSIDES-DOCUSATE SODIUM 1 EACH TAB PO SCH (21:06)
[2019-04-10] MEDS: HYDROcodone/APAP 7.5-325MG 1 EACH TAB PO PRN ×2 (07:24→12:45)
[2019-04-10] MEDS: CARVEDILOL 6.25 MG TAB PO SCH (07:33)
[2019-04-10 07:44] LABS: Basophils % (A) 0 %; Eosinophils # (A) 0.8 k/uL (0-0.7); Eosinophils % (A) 9 %; HCT 34.7 % (39.0-53.0); HGB 11.6 gm/dL (13.0-17.5); Lymphocytes % (A) 12 %; MCH 31.7 pg (25.0-35.0); MCHC 33.5 g/dL (31.0-37.0); MCV 94.6 fL (80.0-100.0); Mean Platelet Volume 6.9; Monocytes # (A) 0.5 k/uL (0-1.0); Monocytes % (A) 6 %; Neutrophils # (A) 6.3 k/uL (1.3-7.7); Neutrophils % (A) 72 %; Platelet Count 171 k/uL (150-450); RBC 3.67 m/uL (4.30-5.90); RDW 12.2 % (11.5-15.5); WBC 8.8 k/uL (3.8-10.6)
[2019-04-10 08:17] VITALS: RESP 12
--- NOTE | 2019-04-10 09:05 | P.DS ---
Providers Date of admission: 04/06/19 18:17 Expected date of discharge: 04/10/19 Attending physician: Alberto Quiros Consults: 04/06/19 18:18 Consult Physician Urgent Consulting Provider: Julius Nazario Consult Reason/Comments: Medical clearance for surgery Do you want consulting provider notified?: Yes Primary care physician: [facility] Clinic - Discharge Diagnosis(es) (1) S/P hip hemiarthroplasty Current Visit: Yes Status: Acute (2) Fall Current Visit: Yes Status: Acute (3) Subcapital fracture of right hip Current Visit: Yes Status: Acute Hospital Course: This is a 73-year-old male who sustained a subcapital fracture of the right hip after a fall. The patient presented to the emergency room for evaluation and was admitted for further management. After discussion and consideration patient elects to proceed with right hip lex-arthroplasty. The patient is seen preoperatively by Dr. Quiros and medically cleared for surgery by internal medicine. Patient is admitted to [facility] on 04/06/2019 and right hip lex- arthroplasty is performed on 04/07/2019. The procedures performed without complication or sequelae. The patient is doing well postoperatively. Labs and vital signs are stable on day of discharge. On day of discharge patient's hip incision is healing well. There is minimal erythema. There is no drainage noted at this time. There is minimal soft tissue swelling to the hip and thigh. Patient has full foot and ankle motion without difficulty or pain. Calf is soft and nontender to palpation. Neurovascular status to the right lower extremity is intact. Patient is discharged home in good condition. Opioid start talking form is reviewed and signed at patient bedside. Please see med rec for accurate list of home medications. Patient Condition at Discharge: Fair Plan - Discharge Summary Discharge Rx Participant: No New Discharge Prescriptions: New HYDROcodone/APAP 7.5-325MG [[place] 7.5-325] 1 - 2 tab PO Q6H PRN #56 tab PRN Reason: Pain Sennosides [Senokot] 1 tab PO BID #60 tablet Rivaroxaban [Xarelto] 10 mg PO DAILY #32 tab No Action Carvedilol [Coreg] 6.25 mg PO BID Omeprazole [PriLOSEC] 20 mg PO AC-BRKFST Rosuvastatin Calcium [Crestor] 20 mg PO DAILY Aspirin 81 mg PO DAILY Meloxicam [Mobic] 7.5 mg PO DAILY PRN PRN Reason: Pain Loratadine [Claritin] 10 mg PO DAILY PRN PRN Reason: Allergy Symptoms Ezetimibe [Zetia] 10 mg PO SUWE Clobetasol Propionate [Temovate 0.05% Cream] 1 applic TOPICAL BID PRN PRN Reason: Rash Discharge Medication List Aspirin 81 mg PO DAILY 11/13/13 [History] Carvedilol [Coreg] 6.25 mg PO BID 11/13/13 [History] Omeprazole [PriLOSEC] 20 mg PO AC-BRKFST 11/13/13 [History] Rosuvastatin Calcium [Crestor] 20 mg PO DAILY 11/13/13 [History] Clobetasol Propionate [Temovate 0.05% Cream] 1 applic TOPICAL BID PRN 04/06/19 [History] Ezetimibe [Zetia] 10 mg PO SUWE 04/06/19 [History] Loratadine [Claritin] 10 mg PO DAILY PRN 04/06/19 [History] Meloxicam [Mobic] 7.5 mg PO DAILY PRN 04/06/19 [History] HYDROcodone/APAP 7.5-325MG [[place] 7.5-325] 1 - 2 tab PO Q6H PRN #56 tab 04/10/19 [Rx] Rivaroxaban [Xarelto] 10 mg PO DAILY #32 tab 04/10/19 [Rx] Sennosides [Senokot] 1 tab PO BID #60 tablet 04/10/19 [Rx] Follow up Appointment(s)/Referral(s): [facility],Clinic [Primary Care Provider] - 1-2 days Alberto Quiros DO [Doctor of Osteopathic Medicine] - 2 Weeks Activity/Diet/Wound Care/Special Instructions: Weightbearing as tolerated with walker. Leave dressing intact. Dressing may be removed by home care nurse or by patient in 10 days. May shower with dressing on. Continue hip dislocation precautions. Continue use of abductor pillow for 6 weeks while sleeping. Recommend use of compression stockings daily for at least 2 weeks during the day to help prevent swelling and blood clots. May remove at night before sleeping. Please follow-up with [facility] in 2 weeks and call with any questions or concerns, . Discharge Disposition: HOME WITH HOME HEALTH SERVICES
[2019-04-10] MEDS: RIVAROXABAN 10 MG TAB PO SCH (10:24)
[2019-04-10] MEDS: ASPIRIN 81 MG PO SCH (10:24)
[2019-04-10] MEDS: ATORVASTATIN 40 MG TAB PO SCH (10:25)
[2019-04-10 13:41] VITALS: BP 124/63; PULSE 74; TEMP 98
== END 2019-04-10 16:05 | disposition home health service (06) | DRG 470 ==
LOC: EC 16:43 → 4SSUR 18:17
PROVIDERS: ADMIT Orthopaedic Surgery; ATTEND Orthopaedic Surgery
PROC: 0SRR0JA Replacement of Right Hip Joint, Femoral Surface with Synthetic Substitute, Uncemented, Open Approach (ICD-10-PCS; principal; 2019-04-07 12:30)
DX: S72.011A Unspecified intracapsular fracture of right femur, initial encounter for closed fracture (principal); W01.0XXA Fall on same level from slipping, tripping and stumbling without subsequent striking against object, initial encounter; E78.5 Hyperlipidemia, unspecified; F17.210 Nicotine dependence, cigarettes, uncomplicated; I10 Essential (primary) hypertension; I25.10 Atherosclerotic heart disease of native coronary artery without angina pectoris; I25.2 Old myocardial infarction; K22.70 Barrett's esophagus without dysplasia; Z79.1 Long term (current) use of non-steroidal anti-inflammatories (NSAID); Z79.82 Long term (current) use of aspirin; Z79.899 Other long term (current) drug therapy; Z95.5 Presence of coronary angioplasty implant and graft; Z80.9 Family history of malignant neoplasm, unspecified; M19.90 Unspecified osteoarthritis, unspecified site; R00.1 Bradycardia, unspecified
CPT/HCPCS: 36415; 71045; 73501; 73502; 80053; 81001; 82550; 83735; 85025; 88305; 88311; 93005; 96374; 99285

== ENCOUNTER 2021-08-23 09:50 | Day surgery (SDC) | payer MEDICARE, BC ==
[2021-08-21 13:13] VITALS: BMI 24.4
[~2021-08-23 09:50] MED LIST changes: -LIDOCAINE 1% 20 ML VIAL (10MG/ML) FOR IV START INTRADERMA PRN
[2021-08-23 11:05] VITALS: TEMP 97.8
[2021-08-23] MEDS ORDERED: PROPOFOL 10 MG/ML 20 ML VIAL IV ONE (11:41)
[2021-08-23] MEDS ORDERED: LIDOCAINE 1% INJ 10MG/ML (20 ML MDV) ONE (11:41)
--- NOTE | 2021-08-23 11:56 | P.PCN ---
Date of Procedure: 08/23/21 Procedure(s) Performed: BRIEF HISTORY: Patient is a 75-year-old, pleasant, male scheduled for an upper endoscopy as a part of evaluation of GERD and Trent's esophagus. Last EGD was 3 years ago. He is presently on Prilosec 20 mg daily and remains asymptomatic.. PROCEDURE PERFORMED: Esophagogastroduodenoscopy with biopsy. PREOPERATIVE DIAGNOSIS: Long-standing history of GERD and Trent's esophagus. IV sedation per anesthesia. PROCEDURE: After informed consent was obtained, the patient was brought into the endoscopy unit. IV sedation was administered by Anesthesia under continuous monitoring. Initially the Olympus GIF-140 video endoscope was inserted into the mouth. Esophagus intubated without any difficulty. It was gradually advanced into the stomach and duodenum and carefully examined. The bulb and the second part of the duodenum appeared normal. The scope at this time was withdrawn to the stomach, adequately insufflated with air, and upon careful examination, mucosa of the antrum, diffuse gastritis. The body, cardia and the fundus appeared normal. The scope was then withdrawn into the esophagus. Small to moderate hiatal hernia noted. The GE junction was located at 36 cm from the incisors. There was long segment of Trent's esophagus extending from 33-36 cm from the incisors and multiple biopsies were done from this area. The rest of the esophagus appeared normal. There were no erosions or ulcerations seen and the patient tolerated the procedure well. IMPRESSION: 1. Long segment Trent's esophagus extending from 33-36 cm from the incisors status post multiple biopsies 2. Moderate size hiatal hernia. 3. Mild diffuse gastritis RECOMMENDATIONS: The findings of this examination were discussed with the patient as well as his family. He was advised to follow with the biopsy results. Continue with Prilosec 20 mg daily and follow antireflux measures. If the biopsy results that esophagus.
[2021-08-23 12:50] VITALS: BP 118/72; PULSE 58; RESP 16
== END 2021-08-23 12:44 | disposition home or self-care (01) ==
LOC: ORWHC2ENDO 09:50
PROVIDERS: ATTEND Internal Medicine Gastroenterology
DX: K31.A19 Gastric intestinal metaplasia without dysplasia, unspecified site (principal); I25.10 Atherosclerotic heart disease of native coronary artery without angina pectoris; I10 Essential (primary) hypertension; E78.5 Hyperlipidemia, unspecified; Z95.5 Presence of coronary angioplasty implant and graft; F17.200 Nicotine dependence, unspecified, uncomplicated; Z96.649 Presence of unspecified artificial hip joint; Z79.82 Long term (current) use of aspirin; Z79.899 Other long term (current) drug therapy; Z88.2 Allergy status to sulfonamides; Z98.890 Other specified postprocedural states
CPT/HCPCS: 88305; 43239; J2001; J2704

== ENCOUNTER 2023-12-25 06:51 | Day surgery (SDC) | payer MEDICARE, BC ==
[~2023-12-25 06:51] MED LIST changes: -LACTATED RINGERS 1,000 ML IV SCH; +LIDOCAINE 1% (10MG/ML) FOR IV START INTRADERMA PRN
[2023-12-25 07:18] VITALS: TEMP 97.4
[2023-12-25] MEDS: IV FLUID CONTINUATION 1,000 ML IV ONE (07:25)
[2023-12-25] MEDS: LACTATED RINGERS 1,000 ML IV SCH (07:27)
[2023-12-25 07:33] LABS: Glucose,Whole Blood 123 mg/dL (70-110)
[2023-12-25] MEDS ORDERED: PROPOFOL 10 MG/ML 20 ML VIAL IV ONE (07:44)
[2023-12-25] MEDS ORDERED: LIDOCAINE 1% INJ 10MG/ML (20 ML MDV) ONE (07:44)
--- NOTE | 2023-12-25 07:55 | P.PCN ---
Date of Procedure: 12/25/23 Procedure(s) Performed: BRIEF HISTORY: Patient is a 78-year-old, pleasant, white male scheduled for an upper endoscopy as a part of evaluation of longstanding history of GERD and Trent's esophagus. Last EGD was done 2 and half years ago. He remains on omeprazole 20 mg daily and denies any heartburn or dysphagia. PROCEDURE PERFORMED: Esophagogastroduodenoscopy with biopsy. PREOPERATIVE DIAGNOSIS: Longstanding history of GERD/Trent's esophagus. IV sedation per anesthesia. PROCEDURE: After informed consent was obtained, the patient was brought into the endoscopy unit. IV sedation was administered by Anesthesia under continuous monitoring. Initially the Olympus GIF-140 video endoscope was inserted into the mouth. Esophagus intubated without any difficulty. It was gradually advanced into the stomach and duodenum and carefully examined. The bulb and the second part of the duodenum appeared normal. The scope at this time was withdrawn to the stomach, adequately insufflated with air, and upon careful examination, mucosa of the antrum, diffuse gastritis and biopsies were done from this area. Mucosa of the body, cardia and the fundus appeared normal. The scope was then withdrawn into the esophagus. Size hiatal hernia noted. The GE junction was located at 37 cm from the incisors. A long segment of Trent's esophagus extending from 33 to 37 cm from the incisors and multiple biopsies were done from this area. No mucosal erosions or nodularity identified. The rest of the esophagus appeared normal. The patient tolerated the procedure well. IMPRESSION: 1. Long segment Trent's esophagus extending from 33 to 37 cm from the incisors s/p multiple biopsies. 2. Moderate size hiatal hernia. 3. Antral gastritis RECOMMENDATIONS: The findings of this examination were discussed with the patient as well as his family. He was advised to follow-up with the biopsy results. If the biopsy reveals no evidence of dysplasia, he can have repeat upper endoscopy in 3 years.
[2023-12-25 08:23] VITALS: BP 144/78; PULSE 57; RESP 20
== END 2023-12-25 08:33 | disposition home or self-care (01) ==
LOC: ORWHC2ENDO 06:51
PROVIDERS: ATTEND Internal Medicine Gastroenterology
DX: K21.00 Gastro-esophageal reflux disease with esophagitis, without bleeding (principal); K29.50 Unspecified chronic gastritis without bleeding; K22.70 Barrett's esophagus without dysplasia; K44.9 Diaphragmatic hernia without obstruction or gangrene; I25.2 Old myocardial infarction; I10 Essential (primary) hypertension; E78.5 Hyperlipidemia, unspecified; I25.10 Atherosclerotic heart disease of native coronary artery without angina pectoris; E11.9 Type 2 diabetes mellitus without complications; M19.90 Unspecified osteoarthritis, unspecified site; F10.90 Alcohol use, unspecified, uncomplicated; F17.210 Nicotine dependence, cigarettes, uncomplicated; Z79.899 Other long term (current) drug therapy; Z79.82 Long term (current) use of aspirin; Z79.84 Long term (current) use of oral hypoglycemic drugs
CPT/HCPCS: 43239; J2001; J2704; 88305; 88342